=== PATIENT | female | born 1960 | race Caucasian/White ===

== ENCOUNTER → 2016-12-24 | Outpatient (CLI) | payer OTHER, MEDICAID ==
[~2016-12-24] MED LIST: FLUMAZENIL 0.5 MG/5 ML MDV IVP ONE; GADOBUTROL 10 ML VIAL IVP ONE; MIDAZOLAM 2 MG/2 ML VIAL ONE; NALOXONE HCL 0.4 MG/ML INJ ONE; NS 1,000 ML IV SCH; fentaNYL 100 MCG/2 ML INJ ONE
== END ==
LOC: FIMAGING 11:57
PROVIDERS: ATTEND Psychiatry & Neurology Neurology
DX: R51 Headache (principal); J45.909 Unspecified asthma, uncomplicated
CPT/HCPCS: 70553; A9585; J2250; J3010; J2310

== ENCOUNTER 2017-07-22 11:41 | Outpatient (CLI) | payer OTHER, MEDICAID ==
[2017-07-22] MEDS ORDERED: FLUMAZENIL 0.5 MG/5 ML MDV IVP PRN (12:07)
[2017-07-22] MEDS ORDERED: MIDAZOLAM 2 MG/2 ML VIAL IVP PRN (12:07)
[2017-07-22] MEDS ORDERED: MEPERIDINE 25 MG/ML SYR IVP PRN (12:07)
[2017-07-22] MEDS ORDERED: NALOXONE HCL 0.4 MG/ML INJ IVP PRN (12:07)
[2017-07-22] MEDS ORDERED: fentaNYL 100 MCG/2 ML INJ IVP PRN (12:07)
[2017-07-22] MEDS ORDERED: NS 1,000 ML IV SCH (12:15)
--- NOTE | 2017-07-22 12:40 | PDRADPRE ---
Radiology History & Physical Indication for procedure: other (Back pain) Home medications: Amitriptyline HCl 10 mg PO DAILY 12/19/16 [Last Taken Unknown] Baclofen 10 mg (*) 10 mg PO BID 12/19/16 [Last Taken Unknown] Econazole Nitrate BID 12/19/16 [Last Taken Unknown] FOLIC ACID 1 mg PO BID 12/19/16 [Last Taken Unknown] Maxalt 10mg 10 mg PO 12/19/16 [Last Taken Unknown] Oxycontin 60 mg PO DAILY 12/19/16 [Last Taken Unknown] Proair Hfa 12/19/16 [Last Taken Unknown] Sertraline HCl 200 mg PO DAILY 12/19/16 [Last Taken Unknown] Tonazidone 40 mg PO BID 12/19/16 [Last Taken Unknown] Toprol Xl 50 mg (*) 50 mg PO BID 12/19/16 [Last Taken Unknown] Trimiconozole 15 mg PO DAILY 12/19/16 [Last Taken Unknown] Vitamin D2 50,000 iunits PO DAILY 12/19/16 [Last Taken Unknown] oxyCODONE CR [Oxycontin] 40 mg PO DAILY 12/19/16 [Last Taken Unknown] oxyCODONE IR 30 mg PO 12/19/16 [Last Taken Unknown] Folic Acid 1 MG (*) 1 mg PO BID 07/01/17 [Last Taken Unknown] Gsr Ultra 07/01/17 [Last Taken Unknown] Allergies/Adverse Reactions: prochlorperazine edisylate [From Compazine] Allergy (Unknown, Verified 07/01/17 14:36) Anxiety IVP DYE Adverse Reaction (Uncoded 07/01/17 14:37) H/A Mental status: A&Ox3 Heart exam: regular rate and rhythm Lungs exam: clear to auscultation Mallampati Score: Class 2
--- NOTE | 2017-07-22 12:41 | PDPROPOC ---
Sedation Plan of Care Sedation Plan of Care: vital signs stable, mental status noted, patient educated of risks, benefits, alternatives, patient can tolerate sedation ASA Classification: ASA 2 Planned drugs: fentanyl, midazolam Mallampati Score: Class 2 Mallampati Reference Image: Patient passed 3-3-2 rule?: Yes
--- NOTE | 2017-07-22 12:41 | PDRADPN ---
Radiology Procedure Note Date of Procedure: 07/22/17 Radiologist: Robin Vazquez Anesthesia: IV Sedation Pre-op Diagnosis: Back Pain Post-op Diagnosis: Back Pain Inf/Abcess present in the surg proc area at time of surgery?: No
[2017-07-22] MEDS ORDERED: fentaNYL 100 MCG/2 ML INJ ONE (13:21)
[2017-07-22] MEDS ORDERED: MIDAZOLAM 2 MG/2 ML VIAL ONE (13:21)
[2017-07-22] MEDS ORDERED: ACETAMINOPHEN 325 MG TAB PO PRN (14:12)
[2017-07-22] MEDS ORDERED: ONDANSETRON 4 MG/2 ML VIAL IVP PRN (14:12)
[2017-07-22 14:39] VITALS: PULSE 69
[2017-07-22 15:14] VITALS: BP 113/70; RESP 12; O2SAT 91
== END 2017-07-22 15:20 | disposition home or self-care (01) ==
LOC: FIMAGING 11:41
PROVIDERS: ATTEND Pain Medicine Interventional Pain Medicine
DX: M48.061 Spinal stenosis, lumbar region without neurogenic claudication (principal); M51.26 Other intervertebral disc displacement, lumbar region; M12.88 Other specific arthropathies, not elsewhere classified, other specified site; M51.37 Other intervertebral disc degeneration, lumbosacral region; M96.1 Postlaminectomy syndrome, not elsewhere classified; M47.817 Spondylosis without myelopathy or radiculopathy, lumbosacral region; M25.551 Pain in right hip; M25.552 Pain in left hip; G89.4 Chronic pain syndrome; Z79.891 Long term (current) use of opiate analgesic
CPT/HCPCS: 72148; 99152; 99153; J2250; J3010